=== PATIENT | male | born 1980 | race Caucasian/White ===

== ENCOUNTER 2019-03-01 16:03 | Emergency (ER) | payer SELFPAY ==
[~2019-03-01] VITALS: Ht 180.3 cm; Wt 74.8 kg
[2019-03-01 16:15] VITALS: BP 142/81
[2019-03-01] MEDS ORDERED: TRAM50TA PO (16:38)
--- NOTE | 2019-03-01 16:39 | PHYS DOC ---
Past Medical History Past Medical History: No Pertinent History Past Surgical History: No Surgical History Alcohol Use: Occasionally Drug Use: None Adult General Chief Complaint Chief Complaint: DENTAL PROBLEM HPI HPI Patient is a 38 year old male who presents with broken tooth in the left lower side. Patient states the pain is not getting worse and he been having chills last night. Patient states has a dental appointment on March 21. Patient rates his pain a 10 out of 10. Review of Systems Review of Systems Constitutional: fever or chills [] HENT: Denies nasal congestion or sore throat. Dental pain.[] All other systems were reviewed and found to be within normal limits, except as documented in this note. Allergies Allergies Allergies Coded Allergies Type Severity Reaction Last Updated Verified No Known Drug Allergies 03/01/19 No Physical Exam Physical Exam Constitutional: Well developed, well nourished, no acute distress, non-toxic appearance. [] HENT: Normocephalic, atraumatic, bilateral external ears normal, oropharynx moist, no oral exudates, nose normal. #19 tooth broken and black. Gumline around the tooth that is reddened and tender.[] Eyes: PERRLA, EOMI, conjunctiva normal, no discharge. [] Neck: Normal range of motion, no tenderness, supple, no stridor. [] Skin: Warm, dry, no erythema, no rash. [] Neurologic: Alert and oriented X 3, normal motor function, normal sensory function, no focal deficits noted. [] Psychologic: Affect normal, judgement normal, mood normal. [] Current Patient Data Vital Signs Vital Signs Date Time Temp Pulse Resp B/P (MAP) Pulse Ox O2 Delivery O2 Flow Rate FiO2 03/01/19 16:15 98.2 95 20 142/81 (101) 97 Room Air 98.2 EKG EKG [] Radiology/Procedures Radiology/Procedures [] Course & Med Decision Making Course & Med Decision Making #19 tooth is broken and black in color. Patient also has gumline redness and tenderness with palpation. No facial swelling or redness. Afebrile. Patient states he began having chills last night. Patient denies any nausea or vomiting or body aches. Dragon Disclaimer Dragon Disclaimer This electronic medical record was generated, in whole or in part, using a voice recognition dictation system. Departure Departure Impression: Primary Impression: Dental caries Additional Impression: Dental abscess Disposition: 01 HOME, SELF-CARE Condition: STABLE Referrals: NO PCP (PCP) Patient Instructions: Dental Abscess, Dental Caries Additional Instructions: Keep your scheduled appointment with the dentist. Take medication as prescribed. Scripts Penicillin V Potassium (PENICILLIN V POTASSIUM) 500 Mg Tablet 1 TAB PO QID for 10 Days, #40 TAB Prov: BANDAR ROQUE APRN 03/01/19 Tramadol Hcl (TRAMADOL HCL) 50 Mg Tablet 50 MG PO Q6HRS PRN for PAIN, #10 TAB Prov: BANDAR ROQUE APRN 03/01/19 Problem Qualifiers BANDAR ROQUE APRN Mar 01, 2019 16:39
[2019-03-01] MEDS ORDERED: PENI500T PO (16:42)
== END 2019-03-01 16:50 | disposition home or self-care (01) ==
LOC: ER 16:03
DX: K02.9 Dental caries, unspecified (principal); L02.91 Cutaneous abscess, unspecified
CPT/HCPCS: 99283

== ENCOUNTER 2020-10-11 11:53 | Emergency (ER) | payer SELFPAY ==
[~2020-10-11] VITALS: Ht 180.3 cm; Wt 72.7 kg
[~2020-10-11 11:53] MED LIST: PENI500T PO; TRAM50TA PO
[2020-10-11 12:20] VITALS: BP 145/90
[2020-10-11] MEDS ORDERED: NAPR-514 PO (12:51)
[2020-10-11] MEDS ORDERED: CLIN150C15 PO (12:51)
[2020-10-11] MEDS ORDERED: CHLO15MO2 SWSP (12:51)
--- NOTE | 2020-10-11 12:51 | ED.ADGEN ---
Past Medical History Past Medical History: No Pertinent History Past Surgical History: Other Additional Past Surgical Histo: RIGHT BROKEN CLAVICLE Smoking Status: Current Every Day Smoker Alcohol Use: Occasionally Drug Use: None General Adult EDM: Chief Complaint: DENTAL PROBLEM HPI: HPI: Patient is a 40 year old male who presents emergency department complaints of right lower quadrant dental pain and facial swelling since yesterday. Patient states he has a history of a broken tooth that he was first fixed last year but then the pandemic occurred and his appointment kept getting canceled. Patient denies any fever, nausea, vomiting, rash, sore throat, cough, abdominal pain, body aches, or fatigue. He currently rates his dental pain a 10 out of 10 on the pain scale, he denies any alleviating factors. Pain is worse with palpation and chewing. Review of Systems: Review of Systems: Complete ROS is negative unless otherwise noted in HPI. Allergies: Allergies: Allergies Coded Allergies Type Severity Reaction Last Updated Verified No Known Drug Allergies 03/01/19 No Physical Exam: PE: See Above Constitutional: Well developed, well nourished, no acute distress, non-toxic appearance. [] HENT: Normocephalic, atraumatic, bilateral external ears normal, bilateral TMs normal, posterior pharynx normal, mucous membranes moist, nose normal; diffuse dental decay with multiple broken teeth, diffuse gingival erythema and edema consistent with gingivitis, no visible or palpable dental abscess [] Eyes: PERRLA, EOMI, conjunctiva normal, no discharge. [] Neck: Normal range of motion, supple, nontender, no stridor. [] Cardiovascular:Heart rate regular rhythm Lungs & Thorax: Respirations even and unlabored, no retractions, no respiratory distress Skin: Warm, dry, no erythema, no rash. [] Extremities: No cyanosis, ROM intact, no edema, no facial erythema or warmth. [] Neurologic: Alert and oriented X 3, no focal deficits noted. [] Psychologic: Affect normal, judgement normal, mood normal. [] Current Patient Data: Vital Signs: Vital Signs Date Time Temp Pulse Resp B/P (MAP) Pulse Ox O2 Delivery O2 Flow Rate FiO2 10/11/20 12:20 98.7 100 20 145/90 (101) 99 Room Air 98.7 EKG: EKG: [] Heart Score: C/O Chest Pain: No Radiology/Procedures: Radiology/Procedures: [] Course & Med Decision Making: Course & Med Decision Making Pertinent Labs and Imaging studies reviewed. (See chart for details) [] Watson Disclaimer: Watson Disclaimer: This electronic medical record was generated, in whole or in part, using a voice recognition dictation system. Departure Departure Impression: Primary Impression: Infected dental caries Additional Impressions: Dentalgia Gingivitis Disposition: HOME / SELF CARE / HOMELESS Condition: STABLE Referrals: NO PCP (PCP) Patient Instructions: Dental Caries, Dental Pain, [id number], Gingivitis, [id number] Additional Instructions: Fill prescription(s) and use as directed. Follow up with your dentist at [facility] next week, return to the ER if symptoms worsen or fever develops. Scripts Clindamycin Hcl (CLINDAMYCIN HCL) 150 Mg Capsule 450 MG PO TID for 7 Days, #63 CAP 0 Refills Prov: FRED DOSS APRN 10/11/20 Chlorhexidine Gluconate (PERIDEX) 15 Ml Mouthwash 15 ML SWSP BID for 10 Days, #1 BOT 0 Refills [place] your teeth before use of this medication and rinse thoroughly after using the medication as it may stain your teeth. Prov: FRED DOSS APRN 10/11/20 Naproxen (NAPROXEN) 500 Mg Tablet 1 TAB PO BID PRN for PAIN for 10 Days, #20 TAB 0 Refills Prov: FRED DOSS APRN 10/11/20 Problem Qualifiers FRED DOSS APRN Oct 11, 2020 12:51
== END 2020-10-11 13:10 | disposition home or self-care (01) ==
LOC: ER 11:53
DX: S02.5XXA Fracture of tooth (traumatic), initial encounter for closed fracture (principal); K02.9 Dental caries, unspecified; K05.10 Chronic gingivitis, plaque induced; F17.200 Nicotine dependence, unspecified, uncomplicated; X58.XXXA Exposure to other specified factors, initial encounter; Y93.89 Activity, other specified; Y92.89 Other specified places as the place of occurrence of the external cause; Y99.8 Other external cause status
CPT/HCPCS: 99283